=== PATIENT | female | born 1930 | race Two or more races ===

== ENCOUNTER 2018-07-06 12:59 | Inpatient (IN) | payer MEDICARE, OTHER ==
--- NOTE | 2018-07-06 13:57 | ED ---
General Adult HPI - General Chief complaint: Recheck/Abnormal Lab/Rx Stated complaint: High BP/low pulse Time Seen by Provider: 07/06/18 13:02 Source: patient, family, RN notes reviewed Mode of arrival: ambulatory Limitations: no limitations - History of Present Illness Initial comments: Patient is a pleasant 88-year-old female presenting to the emergency department with bradycardia. Patient has felt fatigued for the past several days. Patient did have visiting nurse today who was concerned regarding heart rate of 40. Blood pressure was somewhat high. Patient denies any chest pain or dyspnea. No history of similar symptoms previously. - Related Data Home Medications Medication Instructions Recorded Confirmed Calcium Carbonate [Calcium] 600 mg PO BID 07/06/18 07/06/18 LORazepam [Ativan] 0.25 mg PO BID@0800,1200 07/06/18 07/06/18 LORazepam [Ativan] 0.5 mg PO HS 07/06/18 07/06/18 Levothyroxine Sodium [Synthroid] 75 mcg PO DAILY 07/06/18 07/06/18 Triamterene/Hydrochlorothiazid 1 tab PO DAILY 07/06/18 07/06/18 [Triamterene-Hctz 37.5-25 mg Tb] Vits A,C,E/Lutein/Minerals 1 tab PO DAILY 07/06/18 07/06/18 [Ocuvite with Lutein Tablet] Allergies Allergy/AdvReac Type Severity Reaction Status Date / Time Penicillins Allergy Unknown Verified 07/06/18 13:51 Sulfa (Sulfonamide Allergy Unknown Verified 07/06/18 13:51 Antibiotics) Review of Systems ROS Statement: Those systems with pertinent positive or pertinent negative responses have been documented in the HPI. ROS Other: All systems not noted in ROS Statement are negative. Constitutional: Denies: fever Eyes: Denies: eye pain ENT: Denies: ear pain Respiratory: Denies: cough, dyspnea Cardiovascular: Denies: chest pain, palpitations Endocrine: Reports: fatigue Gastrointestinal: Denies: abdominal pain Genitourinary: Denies: dysuria Musculoskeletal: Denies: back pain Skin: Denies: rash Past Medical History Past Medical History: No Reported History, Hypertension Additional Past Medical History / Comment(s): ANXIETY. GLAUCOMA. HYPOTHYROIDISM. History of Any Multi-Drug Resistant Organisms: None Reported Additional Past Surgical History / Comment(s): MASECTOMY Past Psychological History: Anxiety Smoking Status: Never smoker Past Alcohol Use History: None Reported Past Drug Use History: None Reported General Exam Limitations: no limitations General appearance: alert, in no apparent distress Head exam: Present: atraumatic Eye exam: Present: normal appearance ENT exam: Present: normal oropharynx Neck exam: Present: normal inspection Respiratory exam: Present: normal lung sounds bilaterally Cardiovascular Exam: Present: bradycardia, systolic murmur Expanded Peripheral pulses: 2+: Radial (R), Radial (L), Dorsalis Pedis (R), Dorsalis Pedis (L) GI/Abdominal exam: Present: soft. Absent: tenderness Extremities exam: Present: normal inspection. Absent: pedal edema, calf tenderness Back exam: Present: normal inspection Neurological exam: Present: alert Psychiatric exam: Present: normal affect, normal mood Skin exam: Present: normal color Course Vital Signs 07/06/18 07/06/18 13:06 15:38 Temperature 97.3 F L Pulse Rate 41 L 88 Respiratory 18 18 Rate Blood Pressure 194/66 178/63 O2 Sat by Pulse 100 100 Oximetry EKG Findings - EKG Comments: EKG Findings:: Sinus bradycardia 40. ND 134. QRS 124. QT 504. QTC 410. Left axis. 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 No acute ST change Medical Decision Making - Medical Decision Making Patient reevaluated and resting comfortably in bed. Blood pressure stable. Heart rate 37. Patient and family updated on results and plan. Case was discussed in detail with cardiology, Dr. Eason. He will consult and recommends admission to telemetry floor. Case was also discussed in detail with Dr. Borjas, who will admit for hospital call. - Lab Data Result diagrams: 07/06/18 13:45 07/06/18 13:45 Lab Results 07/06/18 07/06/18 07/06/18 Range/Units 13:45 13:45 13:45 WBC 4.8 (3.8-10.6) k/uL RBC 4.09 (3.80-5.40) m/uL Hgb 12.9 (11.4-16.0) gm/dL Hct 40.0 (34.0-46.0) % MCV 97.8 (80.0-100.0) fL MCH 31.5 (25.0-35.0) pg MCHC 32.2 (31.0-37.0) g/dL RDW 12.5 (11.5-15.5) % Plt Count 186 (150-450) k/uL Neutrophils % 73 % Lymphocytes % 18 % Monocytes % 7 % Eosinophils % 1 % Basophils % 0 % Neutrophils # 3.5 (1.3-7.7) k/uL Lymphocytes # 0.8 L (1.0-4.8) k/uL Monocytes # 0.3 (0-1.0) k/uL Eosinophils # 0.0 (0-0.7) k/uL Basophils # 0.0 (0-0.2) k/uL PT (9.0-12.0) sec INR (<1.2) APTT (22.0-30.0) sec Sodium 139 (137-145) mmol/L Potassium 3.5 (3.5-5.1) mmol/L Chloride 102 (98-107) mmol/L Carbon Dioxide 31 H (22-30) mmol/L Anion Gap 6 mmol/L BUN 22 H (7-17) mg/dL Creatinine 1.01 (0.52-1.04) mg/dL Est GFR (CKD-EPI)AfAm 58 (>60 ml/min/1.73 sqM) Est GFR (CKD-EPI)NonAf 50 (>60 ml/min/1.73 sqM) Glucose 100 H (74-99) mg/dL Calcium 9.8 (8.4-10.2) mg/dL Magnesium 1.6 (1.6-2.3) mg/dL Total Bilirubin 0.6 (0.2-1.3) mg/dL AST 25 (14-36) U/L ALT 29 (9-52) U/L Alkaline Phosphatase 43 (38-126) U/L Total Creatine Kinase 40 (30-135) U/L CK-MB (CK-2) 0.3 (0.0-2.4) ng/mL CK-MB (CK-2) Rel Index 0.8 Troponin I <0.012 (0.000-0.034) ng/mL Total Protein 6.3 (6.3-8.2) g/dL Albumin 3.8 (3.5-5.0) g/dL TSH 12.000 H (0.465-4.680) mIU/L Free T4 1.30 (0.78-2.19) ng/dL Free T3 pg/mL 2.2 L (2.8-5.3) pg/ml 07/06/18 Range/Units 13:45 WBC (3.8-10.6) k/uL RBC (3.80-5.40) m/uL Hgb (11.4-16.0) gm/dL Hct (34.0-46.0) % MCV (80.0-100.0) fL MCH (25.0-35.0) pg MCHC (31.0-37.0) g/dL RDW (11.5-15.5) % Plt Count (150-450) k/uL Neutrophils % % Lymphocytes % % Monocytes % % Eosinophils % % Basophils % % Neutrophils # (1.3-7.7) k/uL Lymphocytes # (1.0-4.8) k/uL Monocytes # (0-1.0) k/uL Eosinophils # (0-0.7) k/uL Basophils # (0-0.2) k/uL PT 10.3 (9.0-12.0) sec INR 1.0 (<1.2) APTT 23.6 (22.0-30.0) sec Sodium (137-145) mmol/L Potassium (3.5-5.1) mmol/L Chloride (98-107) mmol/L Carbon Dioxide (22-30) mmol/L Anion Gap mmol/L BUN (7-17) mg/dL Creatinine (0.52-1.04) mg/dL Est GFR (CKD-EPI)AfAm (>60 ml/min/1.73 sqM) Est GFR (CKD-EPI)NonAf (>60 ml/min/1.73 sqM) Glucose (74-99) mg/dL Calcium (8.4-10.2) mg/dL Magnesium (1.6-2.3) mg/dL Total Bilirubin (0.2-1.3) mg/dL AST (14-36) U/L ALT (9-52) U/L Alkaline Phosphatase (38-126) U/L Total Creatine Kinase (30-135) U/L CK-MB (CK-2) (0.0-2.4) ng/mL CK-MB (CK-2) Rel Index Troponin I (0.000-0.034) ng/mL Total Protein (6.3-8.2) g/dL Albumin (3.5-5.0) g/dL TSH (0.465-4.680) mIU/L Free T4 (0.78-2.19) ng/dL Free T3 pg/mL (2.8-5.3) pg/ml - Radiology Data Radiology results: image reviewed (Chest x-ray shows no acute process. Mild cardiac megaly) Disposition Clinical Impression: Bradycardia Disposition: ADMITTED IP TO THIS HOSP Is patient prescribed a controlled substance at d/c from ED?: No Referrals: Damaso Cabrera MD [Primary Care Provider] - 1-2 days Decision Time: 15:50
--- NOTE | 2018-07-06 14:09 | XR ---
EXAMINATION TYPE: XR chest 2V DATE OF EXAM: 07/06/2018 HISTORY: dysrhythmia. REFERENCE: NONE. FINDINGS: The heart is mildly prominent. The lungs are clear. Pleural spaces are clear. IMPRESSION: MILD CARDIOMEGALY.
[2018-07-06 14:27] LABS: Basophils % (A) 0 %; Eosinophils % (A) 1 %; HGB 12.9 gm/dL (11.4-16.0); Lymphocytes # (A) 0.8 k/uL (1.0-4.8); Lymphocytes % (A) 18 %; MCH 31.5 pg (25.0-35.0); MCHC 32.2 g/dL (31.0-37.0); MCV 97.8 fL (80.0-100.0); Mean Platelet Volume 6.9; Monocytes # (A) 0.3 k/uL (0-1.0); Monocytes % (A) 7 %; Neutrophils # (A) 3.5 k/uL (1.3-7.7); Neutrophils % (A) 73 %; Platelet Count 186 k/uL (150-450); RBC 4.09 m/uL (3.80-5.40); RDW 12.5 % (11.5-15.5); WBC 4.8 k/uL (3.8-10.6)
[2018-07-06 14:36] LABS: Albumin 3.8 g/dL (3.5-5.0); Calcium 9.8 mg/dL (8.4-10.2); Magnesium 1.6 mg/dL (1.6-2.3); Potassium 3.5 mmol/L (3.5-5.1); Total Bilirubin 0.6 mg/dL (0.2-1.3); Total Protein 6.3 g/dL (6.3-8.2)
[2018-07-06 14:44] LABS: Partial Thromboplastin Time 23.6 sec (22.0-30.0); Prothrombin Time 10.3 sec (9.0-12.0)
[2018-07-06 14:46] LABS: Creatine Kinase 40 U/L (30-135)
[2018-07-06 14:53] LABS: T4, Free (Free Thyroxine) 1.3 ng/dL (0.78-2.19)
[2018-07-06 14:59] LABS: Creatine Kinase MB 0.3 ng/mL (0.0-2.4); Troponin I <0.012 ng/mL (0.000-0.034)
[2018-07-06] MEDS ORDERED: NALOXONE 0.4 MG/ML 1 ML VIAL IV PRN (15:51)
[2018-07-06] MEDS: SODIUM CHLORIDE 0.9% 1,000 ML IV SCH (16:02)
[2018-07-06] MEDS ORDERED: ACETAMINOPHEN TAB 325 MG TAB PO PRN (16:37)
--- NOTE | 2018-07-06 16:54 | P.HPIM ---
History of Present Illness H&P Date: 07/06/18 Chief Complaint: Dizziness 88-year-old female with PMH of hypertension presents to the ED at the urging of her visiting nurse today when she was found to have a heart rate of 40. Patient complains of dizziness for the past 3 days. Dizziness is described like lightheadedness. She denies any loss of consciousness. Dizziness can occur at any time. Dizziness is intermittent and worsened with sitting to standing change in position. Patient denies any auras, palpitations, shortness of breath with her episodes of dizziness. Otherwise, patient states that she is in good health. Patient states that she is a very active person and does not generally have any medical issues. She denies any headaches, lower extremity edema, nausea, vomiting, fever, cough , chest pain, shortness of breath, palpitations, changes in urination or bowel habits. No changes in appetite or weight. In the ED, CBC and coagulation panel was unremarkable. CMP showed a bicarbonate level of 31, BUN of 22 and glucose of 100. Initial troponin was less than 0.012, EKG showing marketed sinus bradycardia. TSH is elevated at 12 with a normal free T4 and low T3. Chest x-ray shows mild cardiomegaly. Patient is admitted for symptomatic bradycardia, cardiology on consult. Review of Systems All systems: negative Past Medical History Past Medical History: No Reported History, Hypertension Additional Past Medical History / Comment(s): ANXIETY. GLAUCOMA. HYPOTHYROIDISM. History of Any Multi-Drug Resistant Organisms: None Reported Additional Past Surgical History / Comment(s): MASECTOMY Past Psychological History: Anxiety Smoking Status: Never smoker Past Alcohol Use History: None Reported Past Drug Use History: None Reported Medications and Allergies Home Medications Medication Instructions Recorded Confirmed Type Calcium Carbonate [Calcium] 600 mg PO BID 07/06/18 07/06/18 History LORazepam [Ativan] 0.25 mg PO BID@0800,1200 07/06/18 07/06/18 History LORazepam [Ativan] 0.5 mg PO HS 07/06/18 07/06/18 History Levothyroxine Sodium [Synthroid] 75 mcg PO DAILY 07/06/18 07/06/18 History Triamterene/Hydrochlorothiazid 1 tab PO DAILY 07/06/18 07/06/18 History [Triamterene-Hctz 37.5-25 mg Tb] Vits A,C,E/Lutein/Minerals 1 tab PO DAILY 07/06/18 07/06/18 History [Ocuvite with Lutein Tablet] Allergies Allergy/AdvReac Type Severity Reaction Status Date / Time Penicillins Allergy Unknown Verified 07/06/18 13:51 Sulfa (Sulfonamide Allergy Unknown Verified 07/06/18 13:51 Antibiotics) Physical Exam Vitals: Vital Signs Temp Pulse Resp BP Pulse Ox 07/06/18 16:00 45 L 18 154/60 100 07/06/18 15:38 88 18 178/63 100 07/06/18 13:06 97.3 F L 41 L 18 194/66 100 Intake and Output 07/06/18 07/06/18 07/06/18 06:59 14:59 22:59 Other: Weight 43.998 kg General: [non toxic], [no distress], [appears at stated age] Derm: [warm], [dry] Head: [atraumatic], [normocephalic], [symmetric] Eyes: [EOMI], [no lid lag], [anicteric sclera] Mouth: [no lip lesion], [mucus membranes moist] Cardiovascular: [Bradycardia, HR around 40], [no murmur], [positive DP pulse bilateral] Lungs: [CTA bilateral], [no rhonchi, no rales] , [no accessory muscle use] Abdominal: [soft], [ nontender to palpation], [no guarding], [no appreciable organomegaly] Ext: [no gross muscle atrophy], [no edema], [no contractures] Neuro: [no focal neuro deficits] Psych: [Alert], [oriented], [appropriate affect] Results CBC & Chem 7: 07/06/18 13:45 07/06/18 13:45 Labs: Abnormal Lab Results - Last 24 Hours (Table) 07/06/18 07/06/18 Range/Units 13:45 13:45 Lymphocytes # 0.8 L (1.0-4.8) k/uL Carbon Dioxide 31 H (22-30) mmol/L BUN 22 H (7-17) mg/dL Glucose 100 H (74-99) mg/dL TSH 12.000 H (0.465-4.680) mIU/L Free T3 pg/mL 2.2 L (2.8-5.3) pg/ml Thrombosis Risk Factor Assmnt - Choose All That Apply Any of the Below Risk Factors Present?: No Other Risk Factors: No Each Risk Factor Represents 3 Points: Age 75 years or older Thrombosis Risk Factor Assessment Total Risk Factor Score: 3 Thrombosis Risk Factor Assessment Level: Very Low Risk Assessment and Plan Assessment: Assessment and Plan 1. Dizziness: Likely due to symptomatic bradycardia. Other differentials include Vasovagal, Orthostatic, other cardiac causes (murmurs). EKG shows marked bradycardia, HR ~ 40s and as low as 30s in the ED. Neurochecks Q4H. Telemetry monitoring. Fall precautions. FU Orthostatic vitals, Echocardiogram, Cardiology consult 2. Hypertension: BP 154/72. Continue Triamterene-HCTZ 37.5-25 mg PO QD. Monitor vitals, adjust medications as necessary. 3. Hypothyroidism: Continue Synthroid 75 mcg PO QD. TSH 12.000 (elevated), FT4 within normal limits and FT3 2.2. (low). Will consider increasing thyroid medication. Will need adequate outpatient follow-up. Patient is being treated for presyncopal episode, dizziness. Found to be severely bradycardic with a heart rate in the 30s in the ED. Cardiology is aware of the patient.
[2018-07-06] MEDS: LORazepam 0.5 MG TAB PO SCH (21:17)
[2018-07-07] MEDS ORDERED: LEVOTHYROXINE 75 MCG TAB PO SCH (06:30)
[2018-07-07] MEDS: LORazepam 0.5 MG TAB PO SCH ×3 (08:05→20:44)
[2018-07-07] MEDS: TRIAMTERENE-HCTZ 37.5-25MG 1 EACH TAB PO SCH (08:06)
--- NOTE | 2018-07-07 08:47 | P.PN ---
Subjective Progress Note Date: 07/07/18 Principal diagnosis: bradycardia Patient seen and examined. No acute events overnight. Patient reports resolution of her dizziness. States that she was able to walk up and down the halls without dizziness. She denies any palpitations, chest pain or shortness of breath. Patient is really looking for to going home today.reports of dementia and refusing of telemetry yesterday, was eventually placed on the patient. Her heart rate maintains at around 49 bpm. Objective - Vital Signs Vital signs: Vital Signs Temp 98.2 F 07/07/18 04:00 Pulse 45 L 07/07/18 04:00 Resp 18 07/07/18 04:00 BP 158/82 07/07/18 04:00 Pulse Ox 98 07/07/18 04:00 Intake & Output 07/06/18 07/07/18 07/07/18 18:59 06:59 18:59 Intake Total 1000 Balance 1000 Weight 43.9 kg Intake: Amount of Fluid Infused ( 1000 ml) Other: Voiding Method Toilet # Voids 2 - Exam General: [non toxic], [no distress], [appears at stated age] Derm: [warm], [dry] Head: [atraumatic], [normocephalic], [symmetric] Eyes: [EOMI], [no lid lag], [anicteric sclera] Mouth: [no lip lesion], [mucus membranes moist] Cardiovascular: [Bradycardia, HR around 40], [no murmur], [positive DP pulse bilateral] Lungs: [CTA bilateral], [no rhonchi, no rales] , [no accessory muscle use] Abdominal: [soft], [ nontender to palpation], [no guarding], [no appreciable organomegaly] Ext: [no gross muscle atrophy], [no edema], [no contractures] Neuro: [no focal neuro deficits] Psych: [Alert], [oriented], [appropriate affect] - Labs CBC & Chem 7: 07/06/18 13:45 07/06/18 13:45 Labs: Abnormal Lab Results - Last 24 Hours (Table) 07/06/18 07/06/18 Range/Units 13:45 13:45 Lymphocytes # 0.8 L (1.0-4.8) k/uL Carbon Dioxide 31 H (22-30) mmol/L BUN 22 H (7-17) mg/dL Glucose 100 H (74-99) mg/dL TSH 12.000 H (0.465-4.680) mIU/L Free T3 pg/mL 2.2 L (2.8-5.3) pg/ml Assessment and Plan Assessment: Assessment and Plan 1. Dizziness: Likely due to symptomatic bradycardia. Other differentials include Vasovagal, Orthostatic, other cardiac causes (murmurs). EKG shows marked bradycardia, HR ~ 40s and as low as 30s in the ED. Neurochecks Q4H. Telemetry monitoring. Fall precautions. FU Orthostatic vitals, Echocardiogram, Cardiology consult, PT/OT consult 2. Hypertension: BP 158/82. Continue Triamterene-HCTZ 37.5-25 mg PO QD. Monitor vitals, adjust medications as necessary. 3. Hypothyroidism: TSH 12.000 (elevated), FT4 within normal limits and FT3 2.2. (low). Will increase Synthroid to 100 mcg PO QD. Will need adequate outpatient follow-up (repeat TSH/FT4 in 2 weeks). Patient is being treated for presyncopal episode, dizziness. Found to be severely bradycardic with a heart rate in the 30s in the ED. She is pending Cardiology evaluation.
[2018-07-07] MEDS ORDERED: POTASSIUM CHLORIDE ER 20 MEQ TAB.ER PO STA (13:36)
--- NOTE | 2018-07-07 14:35 | CONS ---
CONSULTATION This is 88-year-old elderly lady who has some underlying dementia and is pleasantly confused. She lives with her son. She came into the hospital with complaints of have feeling tired and weak and had a heart rate in the low 40s and she was here in this regard. She was also slightly hypertensive as well. She denied any symptoms whatsoever. Her son tells me that she has occasional dizziness and is supposed to get some carotid Doppler studies. However, she does not have any complaints herself, but she had some dizziness yesterday, which has resolved completely. She feels well. She is walking around the hallways. Her heart rate is in the mid 40s and with activity goes up to about 58 per minute. She seems to be having an underlying sinus mechanism with a right bundle and has a 2 as to 1 block with a QRS that seems to be not particularly wide. She has underlying hypertension and hypothyroidism and she is slightly hypothyroid with a TSH of 12.0. PAST MEDICAL HISTORY: This is remarkable for hypertension. She has also hypothyroidism. She has some anxiety disorder. She has some dementia and pleasantly confused. 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 She also has some anxiety disorder. ALLERGIES: PENICILLIN AND SULFA. MEDICATIONS: Include calcium supplements, levothyroxine 75 mcg daily, Dyazide 1 tab daily, and some vitamin supplements. REVIEW OF SYSTEMS: Unremarkable other than above-mentioned facts. She does not have any syncope. Has no hematemesis, melena, genitourinary symptoms, fever with chills or cough with expectoration. PHYSICAL EXAMINATION: Blood pressure is 150/70, pulse rate is about 46 per minute, regular. HEENT: Unremarkable. Fundus was not examined by me. Neck is supple. No JVD. I do not hear a carotid bruit. Heart exam reveals S1, S2 heard normally. Short systolic murmur at the left sternal border. Lungs are clear. Abdomen is soft, nontender. Lower extremities reveal normal pulses. No edema. Central nervous system is normal. EKG revealed a sinus mechanism with a right bundle branch block pattern and a QRS is about 124 milliseconds. There is a 2 as to 1 second degree block noted. LAB DATA: Revealed a TSH that is elevated modestly up to 12. IMPRESSION: 1. Underlying sick sinus syndrome without symptoms. 2. 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 The patient is asymptomatic. 3. Hypertension. 4. Hypothyroidism. RECOMMENDATIONS: I agree with the hospitalist who has increased her Synthroid from 75-100 mcg. We will increase activity and see how she does. With activity, her heart rate went up to high 50s. I will do an echocardiogram, a carotid Doppler and possibly discharge her if she has no further symptoms and repeat a Holter after 3 weeks on a higher dose of Synthroid and see how she does. Discussed my thoughts in detail with the patient and son. Thank you very much for the consult. BARBRA / IJN: [id number] /
[2018-07-07] MEDS: SODIUM CHLORIDE 0.9% 1,000 ML IV SCH (17:31)
[2018-07-08] MEDS ORDERED: LEVOTHYROXINE 100 MCG TAB PO SCH (06:30)
[2018-07-08] MEDS: LORazepam 0.5 MG TAB PO SCH ×2 (08:13→11:49)
[2018-07-08] MEDS: TRIAMTERENE-HCTZ 37.5-25MG 1 EACH TAB PO SCH (08:13)
--- NOTE | 2018-07-08 09:34 | US ---
EXAMINATION TYPE: US carotid duplex BILAT DATE OF EXAM: 07/08/2018 COMPARISON: NONE CLINICAL HISTORY: Dizziness, bradycardia.. no h/o stroke EXAM MEASUREMENTS: RIGHT: Peak Systolic Velocity (PSV) cm/sec ----- Right CCA: 90.0 ----- Right ICA: 115.6 ----- Right ECA: 215.4 ICA/CCA ratio: 1.3 RIGHT: End Diastole cm/sec ----- Right CCA: 10.0 ----- Right ICA: 17.2 ----- Right ECA: 16.4 LEFT: Peak Systolic Velocity (PSV) cm/sec ----- Left CCA: 77.0 ----- Left ICA: 114.3 ----- Left ECA: 95.2 ICA/CCA ratio: 1.5 LEFT: End Diastole cm/sec ----- Left CCA: 7.2 ----- Left ICA: 14.6 ----- Left ECA: 9.5 VERTEBRALS (direction of flow): Right Vertebral: Antegrade Left Vertebral: Antegrade Rhythm: Normal Mild heterogeneous plaque with no stenosis seen IMPRESSION: 1. Mild atherosclerotic changes bilaterally with no significant hemodynamic stenosis. Criteria for Assigning % of Stenosis / Diameter reduction (Estimation based on the indirect measurements of the internal carotid artery velocities (ICA PSV). 1. Normal (no stenosis)=ICA PSV < 125 cm/s: ratio < 2.0: ICA EDV<40 cm/s. 2. Less than 50% stenosis=ICA PSV < 125 cm/s: ratio < 2.0: ICA EDV<40 cm/s. 3. 50 to 69% stenosis=ICA PSV of 125 to 230 cm/s: ration 2.0 ? 4.0: ICA EDV 40-100 cm/s. 4. Greater than 70% stenosis to near occlusion= ICA PSV > 230 cm/s: ratio > 4.0: ICA EDV > 100 cm/s. 5. Near occlusion= ICA PSV velocities may be low or undetectable: variable ratio and ICA EDV. 6. Total occlusion=unable to detect flow.
[2018-07-08 09:44] VITALS: RESP 16
--- NOTE | 2018-07-08 11:19 | ECHOF ---
Referral Reason:dizziness MEASUREMENTS -------- HEIGHT: 149.9 cm WEIGHT: 39.9 kg BP: 145/72 RVIDd: 2.9 cm (< 3.3) IVSd: 1.0 cm (0.6 - 1.1) LVIDd: 3.7 cm (3.9 - 5.3) LVPWd: 1.1 cm (0.6 - 1.1) IVSs: 1.4 cm LVIDs: 2.8 cm LVPWs: 1.2 cm LA Diam: 2.8 cm (2.7 - 3.8) LAESV Index (A-L): 16.85 ml/m Ao Diam: 3.2 cm (2.0 - 3.7) AV Cusp: 1.4 cm (1.5 - 2.6) MV EXCURSION: 9.306 mm (> 18.000) MV EF SLOPE: 53 mm/s (70 - 150) EPSS: 0.8 cm MV E Momo: 0.97 m/s MV DecT: 179 ms MV A Momo: 1.47 m/s MV E/A Ratio: 0.66 AV maxP.75 mmHg AV meanP.80 mmHg RAP: 5.00 mmHg RVSP: 27.65 mmHg FINDINGS -------- Sinus rhythm. This was a technically adequate study. The left ventricular size is normal. Left ventricular wall thickness is normal. Overall left vent ricular systolic function is normal with, an EF between 60 - 65 %. The right ventricle is normal in size. The left atrial size is normal. The right atrium is normal in size. There is mild aortic valve sclerosis. Trace to mild aortic regurgitation. There is mild aortic st enosis present. Peak/mean gradient across the Aortic Valve is 14.75mmHg / 6.80mmHg. Mild mitral annular calcification present. There is trace to mild mitral regurgitation. Mild tricuspid regurgitation present. Right ventricular systolic pressure is normal at < 35 mmHg. The pulmonic valve was not well visualized. The aortic root size is normal. Normal inferior vena cava with normal inspiratory collapse consistent with estimated right atrial pre ssure of 5 mmHg. There is no pericardial effusion. CONCLUSIONS -------- 1. Sinus rhythm. 2. This was a technically adequate study. 3. The left ventricular size is normal. 4. Left ventricular wall thickness is normal. 5. Overall left ventricular systolic function is normal with, an EF between 60 - 65 %. 6. The right ventricle is normal in size. 7. The left atrial size is normal. 8. The right atrium is normal in size. 9. There is mild aortic valve sclerosis. 10. Trace to mild aortic regurgitation. 11. There is mild aortic stenosis present. 12. Peak/mean gradient across the Aortic Valve is 14.75mmHg / 6.80mmHg. 13. Mild mitral annular calcification present. 14. There is trace to mild mitral regurgitation. 15. Mild tricuspid regurgitation present. 16. Right ventricular systolic pressure is normal at < 35 mmHg. 17. The pulmonic valve was not well visualized. 18. The aortic root size is normal. 19. Normal inferior vena cava with normal inspiratory collapse consistent with estimated right atrial pressure of 5 mmHg. 20. There is no pericardial effusion. POLYGRAPH OPERATOR: Susan Cool RDCS
[2018-07-08 11:36] VITALS: BMI 17.8
[2018-07-08 12:03] VITALS: BP 128/62; PULSE 40; TEMP 99.5
[2018-07-08 13:20] LABS: Calcium 9.6 mg/dL (8.4-10.2); Potassium 4.1 mmol/L (3.5-5.1)
--- NOTE | 2018-07-08 19:58 | PN ---
PROGRESS NOTE HISTORY: Ms. Babb is in a sinus rhythm today. The second degree heart block seems to have improved. The patient is ambulating without symptoms. We have increased her Synthroid from 75 to 100 mcg daily. She can be discharged and I will see her in 3 weeks. Check thyroid levels and do a 24 hour Holter. No pacemaker at this time. Discussed this at length with the patient and son. BARBRA / BLAYNE: [id number] /
--- NOTE | 2018-07-10 10:13 | P.PN ---
Subjective Progress Note Date: 07/08/18 Principal diagnosis: Symptomatically bradycardia Patient was seen and examined. No acute events overnight. Nurses continue to report that the patient is demented, however responds well to redirection. She denies any dizziness at this time. No chest pain, shortness of breath or palpitations. Patient states that she just wants to go home. Objective - Vital Signs Vital signs: Vital Signs Temp 98.0 F 07/08/18 08:00 Pulse 48 L 07/08/18 08:00 Resp 16 07/08/18 08:00 BP 154/70 07/08/18 08:00 Pulse Ox 93 L 07/08/18 08:00 Intake & Output 07/07/18 07/08/18 07/08/18 18:59 06:59 18:59 Intake Total 360 180 Output Total 500 Balance -140 180 Weight 40.1 kg Intake: Intake, IV Titration 0 Amount Sodium Chloride 0.9% 1, 0 000 ml @ 20 mls/hr IV . Q24H [facility] Rx#:[id number] Oral 360 180 Output: Urine 500 Other: Voiding Method Toilet # Voids 1 # Bowel Movements 1 - Exam General: [non toxic], [no distress], [appears at stated age] Derm: [warm], [dry] Head: [atraumatic], [normocephalic], [symmetric] Eyes: [EOMI], [no lid lag], [anicteric sclera] Mouth: [no lip lesion], [mucus membranes moist] Cardiovascular: [Bradycardia, HR around 40], [no murmur], [positive DP pulse bilateral] Lungs: [CTA bilateral], [no rhonchi, no rales] , [no accessory muscle use] Abdominal: [soft], [ nontender to palpation], [no guarding], [no appreciable organomegaly] Ext: [no gross muscle atrophy], [no edema], [no contractures] Neuro: [no focal neuro deficits] Psych: [Alert], [oriented], [appropriate affect] - Labs CBC & Chem 7: 07/06/18 13:45 07/06/18 13:45 Assessment and Plan Assessment: Assessment and Plan 1. Dizziness: Likely due to symptomatic bradycardia. Other differentials include Vasovagal, Orthostatic, other cardiac causes (murmurs). EKG shows marked bradycardia, HR ~ 40s and as low as 30s in the ED. Neurochecks Q4H. Cardiology consulted, recommended echocardiogram, carotid ultrasound and increasing Synthroid. Carotid ultrasound shows no significant stenosis. Telemetry monitoring. Fall precautions. FU Orthostatic vitals, Echocardiogram, PT/OT consult 2. Hypertension: BP 158/82. Continue Triamterene-HCTZ 37.5-25 mg PO QD. Monitor vitals, adjust medications as necessary. 3. Hypothyroidism: TSH 12.000 (elevated), FT4 within normal limits and FT3 2.2. (low). Will increase Synthroid to 100 mcg PO QD. Will need adequate outpatient follow-up (repeat TSH/FT4 in 2 weeks). Patient is being treated for presyncopal episode, dizziness. Evaluated by cardiology, Synthroid increased. Will follow echocardiogram results. PT evaluation pending. Possible DC today or tomorrow
== END 2018-07-08 14:51 | disposition home or self-care (01) | DRG 310 ==
LOC: EC 12:59 → 3SCARD 15:51
PROVIDERS: ADMIT Family Medicine; ATTEND Family Medicine
DX: I49.5 Sick sinus syndrome (principal); I44.1 Atrioventricular block, second degree; E03.9 Hypothyroidism, unspecified; F03.90 Unspecified dementia, unspecified severity, without behavioral disturbance, psychotic disturbance, mood disturbance, and anxiety; F41.9 Anxiety disorder, unspecified; H40.9 Unspecified glaucoma; I10 Essential (primary) hypertension; I25.10 Atherosclerotic heart disease of native coronary artery without angina pectoris; Z79.890 Hormone replacement therapy; Z90.10 Acquired absence of unspecified breast and nipple; Z88.0 Allergy status to penicillin; Z88.2 Allergy status to sulfonamides
CPT/HCPCS: 36415; 71046; 80048; 80053; 82550; 82553; 83735; 84439; 84443; 84481; 84484; 85025; 85610; 85730; 93005; 93306; 93880; 99284

== ENCOUNTER 2018-07-09 19:09 | Emergency (ER) | payer MEDICARE, OTHER ==
[2018-07-09] MEDS ORDERED: SODIUM CHLORIDE 0.9% 500 ML 500 ML IV ONE ×2 (19:33→20:45)
[2018-07-09 19:56] LABS: Basophils % (A) 0 %; Eosinophils % (A) 1 %; HCT 41.7 % (34.0-46.0); HGB 13.7 gm/dL (11.4-16.0); Lymphocytes # (A) 0.8 k/uL (1.0-4.8); Lymphocytes % (A) 10 %; MCH 32.1 pg (25.0-35.0); MCV 97.3 fL (80.0-100.0); Mean Platelet Volume 6.8; Monocytes # (A) 0.4 k/uL (0-1.0); Monocytes % (A) 6 %; Neutrophils % (A) 82 %; Platelet Count 190 k/uL (150-450); RBC 4.29 m/uL (3.80-5.40); RDW 12.7 % (11.5-15.5); WBC 7.3 k/uL (3.8-10.6)
--- NOTE | 2018-07-09 20:01 | ED ---
General Adult HPI - General Source: patient, RN notes reviewed, old records reviewed Mode of arrival: ambulatory Limitations: no limitations <Ruddy Bob - Last Filed: 07/09/18 20:09> <Varghese Hill - Last Filed: 07/10/18 12:43> - General Chief complaint: Psychiatric Symptoms Stated complaint: Psych Eval Time Seen by Provider: 07/09/18 19:12 - History of Present Illness Initial comments: 88-year-old female presenting with confusion. Patient has no diagnosis of dementia, over the past one month she's had worsening confusion, she is left eye house on multiple occasions. She is presenting today for psychiatric evaluation at the request of her son who is her power of health and wellness sales consultant. Patient denies any complaints, she is alert and oriented the time my evaluation. No headache, no vision changes, no focal weakness or numbness, no chest pain or abdominal pain. No nausea vomiting or diarrhea. No fever. Patient's son was concerned about her safety and is planning to petition his mother, for safety concerns. (Ruddy Bob) - Related Data Home Medications Medication Instructions Recorded Confirmed LORazepam [Ativan] 0.25 mg PO BID@0800,1200 07/06/18 07/09/18 LORazepam [Ativan] 0.5 mg PO HS 07/06/18 07/09/18 Triamterene/Hydrochlorothiazid 1 tab PO DAILY 07/06/18 07/09/18 [Triamterene-Hctz 37.5-25 mg Tb] Vits A,C,E/Lutein/Minerals 1 tab PO DAILY 07/06/18 07/09/18 [Ocuvite with Lutein Tablet] Previous Rx's Medication Instructions Recorded Levothyroxine Sodium [Synthroid] 100 mcg PO DAILY #60 tab 07/08/18 Allergies Allergy/AdvReac Type Severity Reaction Status Date / Time Penicillins Allergy Unknown Verified 07/09/18 19:44 Sulfa (Sulfonamide Allergy Unknown Verified 07/09/18 19:44 Antibiotics) Review of Systems ROS Other: All systems not noted in ROS Statement are negative. <Ruddy Bob - Last Filed: 07/09/18 20:09> ROS Other: All systems not noted in ROS Statement are negative. <Varghese Hill - Last Filed: 07/10/18 12:43> ROS Statement: Those systems with pertinent positive or pertinent negative responses have been documented in the HPI. Past Medical History Past Medical History: Coronary Artery Disease (CAD), Cancer, Hypertension, Memory Impairment, Thyroid Disorder Additional Past Medical History / Comment(s): ANXIETY LEFT MASTECTOMY. GLAUCOMA. HYPOTHYROIDISM. 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 Past Anesthesia/Blood Transfusion Reactions: No Reported Reaction Past Psychological History: Anxiety Smoking Status: Former smoker Past Alcohol Use History: None Reported Past Drug Use History: None Reported <Ruddy Bob - Last Filed: 07/09/18 20:09> General Exam Limitations: no limitations General appearance: alert, in no apparent distress Head exam: Present: atraumatic, normocephalic Eye exam: Absent: normal appearance, PERRL (Bilateral postsurgical pupillary changes history of cataract surgery) ENT exam: Present: mucous membranes dry Neck exam: Present: normal inspection Respiratory exam: Present: normal lung sounds bilaterally. Absent: respiratory distress, wheezes Cardiovascular Exam: Present: normal rhythm, bradycardia GI/Abdominal exam: Present: soft. Absent: distended, tenderness Extremities exam: Present: normal inspection, normal capillary refill. Absent: pedal edema Neurological exam: Present: alert, oriented X3, CN II-XII intact. Absent: motor sensory deficit Psychiatric exam: Present: normal affect, normal mood. Absent: homicidal ideation, suicidal ideation Skin exam: Present: warm, dry, intact. Absent: cyanosis, diaphoretic <Ruddy Bob - Last Filed: 07/09/18 20:09> General appearance: alert, in no apparent distress Head exam: Present: atraumatic, normocephalic, normal inspection Eye exam: Present: normal appearance, PERRL, EOMI. Absent: scleral icterus, conjunctival injection, periorbital swelling ENT exam: Present: normal exam, mucous membranes moist Neck exam: Present: normal inspection. Absent: tenderness, meningismus, lymphadenopathy Respiratory exam: Present: normal lung sounds bilaterally. Absent: respiratory distress, wheezes, rales, rhonchi, stridor Cardiovascular Exam: Present: regular rate, normal rhythm, normal heart sounds. Absent: systolic murmur, diastolic murmur, rubs, gallop, clicks GI/Abdominal exam: Present: soft, normal bowel sounds. Absent: distended, tenderness, guarding, rebound, rigid Extremities exam: Present: normal inspection, full ROM, normal capillary refill. Absent: tenderness, pedal edema, joint swelling, calf tenderness Back exam: Present: normal inspection Neurological exam: Present: alert, oriented X3, CN II-XII intact Psychiatric exam: Present: normal affect, normal mood Skin exam: Present: warm, dry, intact, normal color. Absent: rash <Varghese Hill - Last Filed: 07/10/18 12:43> Course <Ruddy Bob - Last Filed: 07/09/18 20:09> <Varghese Hill - Last Filed: 07/10/18 12:43> Vital Signs 07/09/18 07/09/18 07/09/18 19:27 21:07 21:27 Temperature 98.3 F Pulse Rate 50 L 50 L 48 L Respiratory 20 18 16 Rate Blood Pressure 233/78 233/92 142/89 O2 Sat by Pulse 97 100 98 Oximetry 07/09/18 07/09/18 07/10/18 22:00 22:59 01:49 Temperature Pulse Rate 50 L 54 L 48 L Respiratory 18 18 18 Rate Blood Pressure 109/58 153/57 142/83 O2 Sat by Pulse 98 97 99 Oximetry 07/10/18 07/10/18 07/10/18 05:06 08:34 09:38 Temperature 98.3 F Pulse Rate 54 L 56 L 80 Respiratory 14 18 16 Rate Blood Pressure 133/55 158/92 188/66 O2 Sat by Pulse 100 98 99 Oximetry 07/10/18 09:49 Temperature Pulse Rate Respiratory Rate Blood Pressure 156/80 O2 Sat by Pulse Oximetry - Reevaluation(s) Reevaluation #1: 07/09/18 2100 Patient's care is signed out at shift change to Dr. Lemons, for medical clearance and EPS evaluation. (Ruddy Bob) EKG Findings - EKG Comments: EKG Findings:: EKG: Sinus bradycardia with PAC, possible left atrial enlargement , left axis deviation, right bundle branch, rate of 55, AR interval 142, QRS duration 118, QTC 426, no ST segment changes, no change compared to EKG from 2 days prior. <Ruddy Bob - Last Filed: 07/09/18 20:09> Medical Decision Making - Lab Data Result diagrams: 07/09/18 19:42 <Ruddy Bob - Last Filed: 07/09/18 20:09> - Lab Data Result diagrams: 07/09/18 19:42 07/09/18 19:42 <Varghese Hill - Last Filed: 07/10/18 12:43> - Medical Decision Making 88 female to the ED for evaluation, no medical disease, no psychiatric basis for admission, ok for discharge. (Varghese Hill) - Lab Data Lab Results 07/09/18 07/09/18 07/09/18 Range/Units 19:42 19:42 20:45 WBC 7.3 (3.8-10.6) k/uL RBC 4.29 (3.80-5.40) m/uL Hgb 13.7 (11.4-16.0) gm/dL Hct 41.7 (34.0-46.0) % MCV 97.3 (80.0-100.0) fL MCH 32.1 (25.0-35.0) pg MCHC 33.0 (31.0-37.0) g/dL RDW 12.7 (11.5-15.5) % Plt Count 190 (150-450) k/uL Neutrophils % 82 % Lymphocytes % 10 % Monocytes % 6 % Eosinophils % 1 % Basophils % 0 % Neutrophils # 6.0 (1.3-7.7) k/uL Lymphocytes # 0.8 L (1.0-4.8) k/uL Monocytes # 0.4 (0-1.0) k/uL Eosinophils # 0.0 (0-0.7) k/uL Basophils # 0.0 (0-0.2) k/uL Sodium 137 (137-145) mmol/L Potassium 4.7 (3.5-5.1) mmol/L Chloride 102 (98-107) mmol/L Carbon Dioxide 24 (22-30) mmol/L Anion Gap 11 mmol/L BUN 30 H (7-17) mg/dL Creatinine 1.13 H (0.52-1.04) mg/dL Est GFR (CKD-EPI)AfAm 51 (>60 ml/min/1.73 sqM) Est GFR (CKD-EPI)NonAf 44 (>60 ml/min/1.73 sqM) Glucose 122 H (74-99) mg/dL Calcium 10.6 H (8.4-10.2) mg/dL Total Bilirubin 0.8 (0.2-1.3) mg/dL AST 37 H (14-36) U/L ALT 24 (9-52) U/L Alkaline Phosphatase 50 (38-126) U/L Total Protein 8.1 (6.3-8.2) g/dL Albumin 4.8 (3.5-5.0) g/dL Urine Color Light Yellow Urine Appearance Clear (Clear) Urine pH 7.0 (5.0-8.0) Ur Specific [place] 1.005 (1.001-1.035) Urine Protein Negative (Negative) Urine Glucose (UA) Negative (Negative) Urine Ketones Negative (Negative) Urine Blood Negative (Negative) Urine Nitrite Negative (Negative) Urine Bilirubin Negative (Negative) Urine Urobilinogen <2.0 (<2.0) mg/dL Ur Leukocyte Esterase Moderate H (Negative) Urine RBC 1 (0-5) /hpf Urine WBC 10 H (0-5) /hpf Hyaline Casts 3 H (0-2) /lpf Urine Mucus Rare H (None) /hpf Urine Opiates Screen Not Detected (NotDetected) Ur Oxycodone Screen Not Detected (NotDetected) Urine Methadone Screen Not Detected (NotDetected) Ur Propoxyphene Screen Not Detected (NotDetected) Ur Barbiturates Screen Not Detected (NotDetected) U Tricyclic Antidepress Not Detected (NotDetected) Ur Phencyclidine Scrn Not Detected (NotDetected) Ur Amphetamines Screen Not Detected (NotDetected) U Methamphetamines Scrn Not Detected (NotDetected) U Benzodiazepines Scrn Detected H (NotDetected) Urine Cocaine Screen Not Detected (NotDetected) U Marijuana (THC) Screen Not Detected (NotDetected) Serum Alcohol <10 mg/dL Disposition <Ruddy Bob - Last Filed: 07/09/18 20:09> Is patient prescribed a controlled substance at d/c from ED?: No <Varghese Hill - Last Filed: 07/10/18 12:43> Clinical Impression: Dementia Disposition: HOME SELF-CARE Condition: Fair Instructions: Dementia (ED) Referrals: Damaso Cabrera MD [Primary Care Provider] - 1-2 days
[2018-07-09 20:12] LABS: ALT 24 U/L (9-52); AST 37 U/L (14-36); Albumin 4.8 g/dL (3.5-5.0); Alcohol <10 mg/dL; Alkaline Phosphatase 50 U/L (38-126); Anion Gap 11 mmol/L; Blood Urea Nitrogen 30 mg/dL (7-17); Calcium 10.6 mg/dL (8.4-10.2); Carbon Dioxide 24 mmol/L (22-30); Chloride 102 mmol/L (98-107); Glucose 122 mg/dL (74-99); Potassium 4.7 mmol/L (3.5-5.1); Sodium 137 mmol/L (137-145); Total Bilirubin 0.8 mg/dL (0.2-1.3); Total Protein 8.1 g/dL (6.3-8.2)
--- NOTE | 2018-07-09 20:32 | CT ---
EXAMINATION: CT brain wo con DATE AND TIME: 07/09/2018 8:11 PM CLINICAL INDICATION: PHH; altered mental status TECHNIQUE: Standard departmental protocol.; 1210.4; COMPARISON: None. FINDINGS: The calvarium is intact. There is no intracranial hemorrhage. There is no intracranial mass or mass effect. No definite new intra-axial or extra-axial attenuation defect. The paranasal sinuses, middle ear cavities, and mastoid sinus air cells are clear. The orbits are unremarkable. IMPRESSION: NO ACUTE PROCESS.
[2018-07-09] MEDS ORDERED: TRIAMTERENE-HCTZ 37.5-25MG 1 EACH CAP PO STA (20:44)
[2018-07-09] MEDS ORDERED: hydrALAZINE HCL 20 MG/ML 1 ML VIAL IVP STA (20:48)
[2018-07-09 21:10] LABS: Appearance,Urine Clear (Clear); Bilirubin,Urine Negative (Negative); Blood,Urine Negative (Negative); Color,Urine Light Yellow; Glucose,Urine (UA) Negative (Negative); Hyaline Casts,Urine 3 /lpf (0-2); Ketones,Urine Negative (Negative); Leukocyte Esterase,Urine Moderate (Negative); Mucus,Urine Rare /hpf; Nitrite,Urine Negative (Negative); Protein,Urine Negative (Negative); RBC,Urine 1 /hpf (0-5); Specific Gravity,Urine 1.005 (1.001-1.035); Urobilinogen,Urine <2.0 mg/dL (<2.0); WBC,Urine 10 /hpf (0-5)
--- NOTE | 2018-07-09 21:10 | XR ---
EXAMINATION: XR chest 2V DATE AND TIME: 07/09/2018 8:16 PM CLINICAL INDICATION: PHH; altered mental status TECHNIQUE: Departmental protocol COMPARISON: 07/06/2018 FINDINGS: The lungs are clear. The pleural spaces are negative. The cardiac silhouette is not enlarged. The remainder of the mediastinal silhouette is unremarkable. The skeletal structures and soft tissues are negative for acute findings. IMPRESSION: NO ACUTE PROCESS.
[2018-07-09 21:16] LABS: Amphetamine Screen,Urine Not Detected (NotDetected); Barbiturate Screen,Urine Not Detected (NotDetected); Benzodiazepines Screen,Urine Detected (NotDetected); Cocaine Screen,Urine Not Detected (NotDetected); Methadone Screen, Urine Not Detected (NotDetected); Opiate Screen,Urine Not Detected (NotDetected); Oxycodone Screen, Urine Not Detected (NotDetected); Phencyclidine Screen,Urine Not Detected (NotDetected); Tricyclic Antidepressant,Urine Not Detected (NotDetected); Urn Cannabinoid Scrn Not Detected (NotDetected)
[2018-07-10] MEDS ORDERED: hydrALAZINE HCL 20 MG/ML 1 ML VIAL IVP STA (09:45)
[2018-07-10 15:30] VITALS: BP 164/60; PULSE 50; RESP 18; TEMP 97.8
== END 2018-07-10 15:40 | disposition home or self-care (01) ==
LOC: EC 19:09
DX: F03.90 Unspecified dementia, unspecified severity, without behavioral disturbance, psychotic disturbance, mood disturbance, and anxiety (principal); I25.10 Atherosclerotic heart disease of native coronary artery without angina pectoris; I10 Essential (primary) hypertension; F41.9 Anxiety disorder, unspecified; Z85.828 Personal history of other malignant neoplasm of skin; Z87.891 Personal history of nicotine dependence; Z79.899 Other long term (current) drug therapy; Z88.0 Allergy status to penicillin; Z88.2 Allergy status to sulfonamides; Z90.12 Acquired absence of left breast and nipple
CPT/HCPCS: 99285; 36415; 93005; 80053; 85025; 81001; 80306; 71046; 70450; 96374; G0480; J0360; 80320